=== PATIENT | male | born 1995 | race Caucasian/White ===

== ENCOUNTER 2016-05-24 20:56 | Emergency (ER) | payer SELFPAY ==
[2016-05-24] MEDS ORDERED: ONDANSETRON HCL/PF 4 MG/ 2ML VIAL IVP ONE (21:15)
[2016-05-24] MEDS ORDERED: 0.9 % SODIUM CHLORIDE 1,000 ML IV ONE ×2 (21:15→22:08)
--- NOTE | 2016-05-24 21:47 | ED Physician Documentation ---
Abdominal Pain - HISTORIAN Historian: patient - HPI Stated Complaint: Nausea/diarrhea/head pain Chief Complaint: Abdominal Pain Onset: days ago Timing: worse Context: denies: out of country travel, bad food, recent trauma Quality: pain Associated Symptoms: nausea, vomiting, diarrhea Further Comments: yes (21 year old male patient presents with complaints of nausea and vomiting for the past 2 days, states he cannot keep anything down. Reports epigastric and LUQ pain for the past 2 months. States pain is worse a couple hours after he eats.) - ROS CONST: no problems GI/: none CVS/RESP: none EYES/ENT: none MS/SKIN/LYMPH: none NEURO/PSYCH: headache, dizziness - SOCIAL HX Smoking History: non-smoker Alcohol Use: none Drug Use: none - FAMILY HX Family History: gall stones - PAST HX Past History: none Ischemic Bowel Risk Factors: none Other History: other (acute renal failure at age 19) Surgeries/Procedures: other (Left knee - ACL and MCL repair) Home Medications: Ambulatory Orders Medication Instructions Recorded NK [NK] 07/13/12 Allergies/Adverse Reactions: Allergies Allergy/AdvReac Type Severity Reaction Status Date / Time No Known Allergies Allergy Verified 05/24/16 21:53 - VITAL SIGNS Vital Signs: Vital Signs Temp Pulse Resp BP Pulse Ox 98 F 78 16 120/76 97 05/24/16 20:58 05/24/16 20:58 05/24/16 20:58 05/24/16 20:58 05/24/16 20:58 - REVIEWED ASSESSMENTS Nursing Assessment Reviewed: Yes Vitals Reviewed: Yes Progress - Progress Progress: Reviewed lab results with patient, state he feels better after medications and fluids. Reviewed discharge instructions. Set up for RUQ ultrasound to assess gall bladder, instructed patient to make appointment with Dr Isabel for next week. Verbalized understanding. Patient states he does not have prescriptions insurance. Will use phenergan prn. ED Results Lab/Radiology - Lab Results Lab Results: Lab Results 05/24/16 05/24/16 21:42 21:42 WBC 9.30 K/ul K/ul (4.00-12.00) RBC 5.17 M/ul M/ul (3.90-5.20) Hgb 15.7 g/dL g/dL (12.0-18.0) Hct 45.8 % % (37.0-53.0) MCV 88.5 fl fl (80.0-100.0) MCH 30.3 pg pg (28.0-34.0) MCHC 34.3 g/dL g/dL (30.0-36.0) RDW 12.5 % % (11.3-14.3) Plt Count 202 K/mm3 K/mm3 (130-400) Neut % (Auto) 77.2 % % (39.0-79.0) Lymph % (Auto) 11.1 % L % (16.0-50.0) [place] % (Auto) 9.4 % % (0.0-11.0) Eos % (Auto) 0.8 % % (0.0-6.8) Baso % (Auto) 0.1 (0.0-1.5) Neut # 7.2 # k/uL # k/uL (1.4-7.7) Lymph # 1.0 # k/uL # k/uL (0.6-4.0) [place] # 0.9 # k/uL # k/uL (0.0-0.9) Eos # 0.1 # k/uL # k/uL (0.0-0.6) Baso # 0.0 # k/uL # k/uL (0.0-0.5) Reactive Lymphs % 1.5 % % (0.0-5.0) Reactive Lymphs # 0.1 # k/uL # k/uL (0.0-0.8) Sodium 138 mmol/L mmol/L (136-145) Potassium 3.4 mmol/L L mmol/L (3.5-5.0) Chloride 103 mmol/L mmol/L (98-110) Carbon Dioxide 29 mmol/L mmol/L (20-32) BUN 14 mg/dL mg/dL (10-26) Creatinine 1.0 mg/dL mg/dL (0.4-1.5) Estimated Creat Clear 146 Est GFR ( Amer) > 60 (60 - ) Est GFR (Non-Af Amer) > 60 (60 - ) Glucose 96 mg/dL mg/dL (70-99) Calcium 9.6 mg/dL mg/dL (8.5-10.5) Total Bilirubin 0.6 mg/dL mg/dL (0.2-1.2) AST 23 U/L U/L (0-41) ALT 29 U/L U/L (0-45) Alkaline Phosphatase 51 U/L U/L (46-116) Total Protein 7.8 g/dL g/dL (6.0-8.5) Albumin 4.8 g/dL g/dL (3.0-5.5) - Orders Orders: ED Orders Category Date Time Status Place Saline Lock/IV NOW Care 05/24/16 21:15 Active CBC/PLATELET/DIFF Stat Lab 05/24/16 21:42 Completed CMP Stat Lab 05/24/16 21:42 Completed UA W/MICRO IF INDICATED Stat Lab 05/24/16 21:15 Ordered 0.9 % Sodium Chloride [Normal Saline] 1,000 ml Med 05/24/16 21:15 Discontinued IV NOW 0.9 % Sodium Chloride [Normal Saline] 1,000 ml Med 05/24/16 22:08 Discontinued IV NOW Ondansetron HCl/Pf [Zofran 4 mg/2 ml] Med 05/24/16 21:15 Discontinued 4 mg IVP NOW ONE Abdominal Pain Physical Exam - Physical Exam General Appearance: mild distress EENT: eye inspection normal, RYLAN RESPIRATORY: no resp distress, chest non-tender, breath sounds normal CVS: reg rate & rhythm, heart sounds normal, equal pulses, no murmur, no gallop , PMI nml, no JVD, no friction rub, 24 ABDOMEN: soft, no organomegaly, normal bowel sounds, no abdominal bruit, no distension, tenderness (Epigastric). No: McBurney's point tenderne, psoas, obturator sign, distended, guarding SKIN: normal color, warm/dry, NR, INT, PAL, DR EXTREMITIES: non-tender, normal range of motion, no evidence of injury, no edema , J, [employer] NEURO: oriented X3, CN's nml as tested, motor nml, sensation nml Vital Signs: Vital Signs Temp Pulse Resp BP Pulse Ox 98 F 78 16 120/76 97 05/24/16 20:58 05/24/16 20:58 05/24/16 20:58 05/24/16 20:58 05/24/16 20:58 Discharge Clincal Impression: Abdominal pain Qualifiers: Abdominal location: epigastric Qualified Code(s): R10.13 - Epigastric pain Nausea and vomiting Qualifiers: Vomiting type: unspecified Vomiting Intractability: non-intractable Qualified Code(s): R11.2 - Nausea with vomiting, unspecified Additional Instructions: Diet: Clear liquids Sprite/7-up Juices apple, white grape Gatorade/Powerade Jello Popsicles When tolerating clear liquids, advance to bland diet - such as crackers , rice,bananas or toast. Then BLAND diet - no spicy or fatty foods. Return to the emergency department or call your doctor, if you are having severe abdominal pain, fever >101.0, or if there is blood in the vomit or diarrhea, or you cannot keep down liquids or solid food. Saturday morning - US of right upper quadrant. 9 am Nothing to eat or drink after midnight on Saturday night Make a follow up appointment with Dr Isabel for 05/30/16 to discuss US results. Home Medications: Ambulatory Orders NK [NK] 07/13/12 Condition: Stable Disposition: 01 HOME, SELF-CARE Decision to Admit: NO Decision Time: 23:21
[2016-05-24 21:49] LABS: BASOPHILS % 0.1 (0.0-1.5); EOSINOPHILS % 0.8 % (0.0-6.8); MEAN CORPUSCULAR HEMOGLOBIN 30.3 pg (28.0-34.0); MEAN CORPUSCULAR VOLUME 88.5 fl (80.0-100.0); MONOCYTES % 9.4 % (0.0-11.0); NEUTROPHILS # 7.2 # k/uL (1.4-7.7)
[2016-05-24 22:01] LABS: eGFR (African) > 60; eGFR (Non-African) > 60
[2016-05-25 02:09] VITALS: BP 118/72
== END 2016-05-24 23:20 | disposition home or self-care (01) ==
LOC: ED 20:56 → EDSTATUS 20:58 → ED 23:20
DX: R10.13 Epigastric pain (principal); R11.2 Nausea with vomiting, unspecified
CPT/HCPCS: 80053; 85025; 96361; 96374; 99283; J2405; J7030; S1016